=== PATIENT | male | born 1945 | race Caucasian/White ===

== ENCOUNTER 2018-12-12 06:25 | Emergency (ER) | payer MEDICARE, OTHER ==
[~2018-12-12] VITALS: Ht 162.6 cm; Wt 75.0 kg
[~2018-12-12 06:25] MED LIST: ALLO100T PO; FURO20 PO; PRAZ5 PO; VERA240T14 PO
[2018-12-12] MEDS ORDERED: ATOR10TA69 PO (06:38)
[2018-12-12] MEDS ORDERED: LOSA50TA65 PO (06:38)
[2018-12-12] MEDS ORDERED: AMLO5TAB66 PO (06:38)
[2018-12-12 06:47] VITALS: BP 136/85
[2018-12-12] MEDS ORDERED: TETRACAINE/BENZOCAINE/BUTAMBEN 32 GM GEL TP ONE (08:45)
[2018-12-12 13:00] LABS: GLUCOSE,POINT OF CARE 110 MG/DL (70-110)
== END 2018-12-12 09:42 | disposition home or self-care (01) ==
LOC: EMS 06:25
DX: H92.01 Otalgia, right ear (principal); I10 Essential (primary) hypertension; Z88.8 Allergy status to other drugs, medicaments and biological substances; Z79.899 Other long term (current) drug therapy